=== PATIENT | male | born 1970 | race Two or more races ===

== ENCOUNTER 2021-01-23 22:05 | Emergency (ER) | payer OTHER ==
[~2021-01-23] VITALS: Ht 182.9 cm; Wt 127.0 kg
--- NOTE | 2021-01-23 22:08 | PHYS DOC ---
Past History Past Medical History: Arthritis Past Surgical History Rt. ankle and foot Smoking: Cigarettes General Adult HPI: HPI: ".. I ve had problems of these knees for years.. I had fluid taken off this Lt one once.. .. now this right has the same thing.. I think.. I got degenerative joint disease everywhere and now up and down my spine... A series from all the manual labor... I just moved out here from [facility] 3 months ago... But anyway this knee was given if it is day and almost fell when I got up because it hurts so bad..." Patient is a 50 year old male who presents with above hx and complaints increased right knee edema and pain. Patient has had somewhat chronic problems with both knees. The swelling in the right knee has become more prevalent in the past week . No specific history of injury. No history of fever or chills. No history of specific ill contacts. Has been exposed to Covid when he is in [place] from family members. Has had 2 family members of Covid. Patient has not gotten the Covid vaccination and does not plan to do so. No history immunosuppression. No history of IV drug use. Has had ankles and foot surgery on the right previously for fracture. Review of Systems: Review of Systems: Constitutional: Denies fever or chills Eyes: Denies change in visual acuity HENT: Denies nasal congestion or sore throat Respiratory: Denies cough or shortness of breath Cardiovascular: Denies chest pain or edema GI: Denies abdominal pain, nausea, vomiting, bloody stools or diarrhea : Denies dysuria Musculoskeletal: Complains of right knee pain Integument: Denies rash Neurologic: Denies headache, focal weakness or sensory changes Endocrine: Denies polyuria or polydipsia Lymphatic: Denies swollen glands Psychiatric: Denies depression or anxiety Family History: Family History: Hypertension arthritis diabetes Current Medications: Current Meds: See nursing for home meds Allergies: Allergies: No known drug allergies Physical Exam: PE: Constitutional: Moderate acute distress, non-toxic appearance. [] HENT: Normocephalic, atraumatic, bilateral external ears normal, oropharynx moist, no oral exudates, nose normal. [] Eyes: PERRLA, EOMI, conjunctiva normal, no discharge. [] Neck: Normal range of motion, no tenderness, supple, no stridor. [] Cardiovascular:Heart rate regular rhythm, no murmur [] Lungs & Thorax: Bilateral breath sounds equal apex few scattered wheezes on auscultation [] Abdomen: Bowel sounds normal, soft, no tenderness, no masses, no pulsatile masses. Obese. Noncircumcised male. No adenopathy in groin Skin: Warm, dry, no erythema, no rash. Tattoos Back: No tenderness, no CVA tenderness. Mild kyphosis Extremities: Bilateral knee tenderness, no cyanosis, no clubbing, ROM in both knees has crepitation, can do straight leg lifts. Does appear to have a popliteal cyst behind right knee. Has significant medial collateral ligament and meniscus tenderness on palpation with right knee. Distal neurovascular is equal to left. Old surgical scar right ankle and foot. No cording appreciated in the legs. Neurologic: Alert and oriented X 3, normal motor function, normal sensory function, no focal deficits noted. [] Psychologic: Affect anxious, judgement normal, mood normal. [] EKG: EKG: [] Radiology/Procedures: Radiology/Procedures: [][address] [place] [address] IMAGING REPORT Signed PATIENT: MARIA E PALMA ACCOUNT: [id number] : 1970 LOCATION: ER AGE: 50 SEX: M EXAM STATUS: REG ER ORD. PHYSICIAN: SPENSER TERAN MD REASON: pain,edema, CHRONIC PAIN, TWISTED TODAY PROCEDURE: KNEE RIGHT 4V EXAMINATION: XR KNEE 4 VIEWS WITH PATELLA_RT CLINICAL HISTORY: Pain, edema, CHRONIC PAIN, TWISTED TODAY TECHNIQUE: XR KNEE 4 VIEWS WITH PATELLA_RT Number of Images/Views: 5 COMPARISON: None FINDINGS: Joint spaces and alignment maintained. No acute fracture. Small suprapatellar enthesophyte. No significant joint effusion. IMPRESSION: No acute osseous abnormality. Electronically signed by: German Mcdonald DO (01/23/2021 11:24 PM) [facility] DICTATED AND SIGNED BY: GERMAN MCDONALD DO DATE: 01/23/21 0584 CC: SPENSER TERAN MD; PCP,NO ~MTH0 0 Heart Score: C/O Chest Pain: N/A Risk Factors: Risk Factors: DM, Current or recent (<one month) smoker, HTN, HLP, family history of CAD, obesity. Risk Scores: Score 0 - 3: 2.5% MACE over next 6 weeks - Discharge Home Score 4 - 6: 20.3% MACE over next 6 weeks - Admit for Clinical Observation Score 7 - 10: 72.7% MACE over next 6 weeks - Early Invasive Strategies Course & Med Decision Making: Course & Med Decision Making Pertinent Labs and Imaging studies reviewed. (See chart for details) Ice packs as needed. Elevate. Take Tylenol or Ibuprofen for pain. Wear Gaudencio wrap or knee brace. Recommend follow-up with [facility] Ortho [phone]. [] Impression: 1. Rt Knee DJD- marco antonio.Small supra patellar enthesopohyte 2. Small Rt. Jay Cyst? Saroj Disclaimer: Saroj Disclaimer: This electronic medical record was generated, in whole or in part, using a voice recognition dictation system. Departure Departure: Referrals: PCP,HAYDEN (PCP) Saroj Disclaimer This chart was dictated in whole or in part using Voice Recognition software in a busy, high-work load, and often noisy Emergency Department environment. It may contain unintended and wholly unrecognized errors or omissions. SPENSER TERAN MD Jan 23, 2021 22:08
--- NOTE | 2021-01-23 23:26 | RAD ---
EXAMINATION: XR KNEE 4 VIEWS WITH PATELLA_RT CLINICAL HISTORY: Pain, edema, CHRONIC PAIN, TWISTED TODAY TECHNIQUE: XR KNEE 4 VIEWS WITH PATELLA_RT Number of Images/Views: 5 COMPARISON: None FINDINGS: Joint spaces and alignment maintained. No acute fracture. Small suprapatellar enthesophyte. No signif icant joint effusion. IMPRESSION: No acute osseous abnormality. Electronically signed by: German Conner DO (01/23/2021 11:24 PM) KAREEN
[2021-01-23] MEDS ORDERED: KETOROLAC 60 MG/2 ML VIAL. IM ONE (23:30)
[2021-01-23] MEDS ORDERED: IBUPROFEN 600 MG TABLET. PO ONE (23:45)
[2021-01-24 00:13] VITALS: BP 130/72
== END 2021-01-24 00:13 | disposition home or self-care (01) ==
LOC: ER 22:05
DX: M17.11 Unilateral primary osteoarthritis, right knee (principal); F17.210 Nicotine dependence, cigarettes, uncomplicated
CPT/HCPCS: 73564; 99283

== ENCOUNTER 2021-07-20 08:08 | Emergency (ER) | payer SELFPAY ==
[~2021-07-20] VITALS: Ht 182.9 cm; Wt 127.0 kg
[2021-07-20 08:34] VITALS: BP 163/78
[2021-07-20] MEDS ORDERED: KETOROLAC 30 MG/ML VIAL. IVP ONE (09:00)
[2021-07-20] MEDS ORDERED: ORPHENADRINE CITRATE 60 MG/2 ML VIAL. IV ONE (09:00)
[2021-07-20 09:53] LABS: BASO # 0.1 x10^3/uL (0.0-0.2); BASO % 1 % (0-3); EOS # 2.2 x10^3/uL (0.0-0.7); EOS % 21 % (0-3); HEMATOCRIT 45.7 % (39.0-53.0); HEMOGLOBIN 15.5 g/dL (13.0-17.5); LYMPH # 1.8 x10^3/uL (1.0-4.8); LYMPH % 18 % (24-48); MEAN CORPUSCULAR HEMOGLOBIN 29 pg (25-35); MEAN CORPUSCULAR HGB CONC 34 g/dL (31-37); MEAN CORPUSCULAR VOLUME 86 fL (79-100); MONO # 0.8 x10^3/uL (0.0-1.1); MONO % 8 % (0-9); NEUT # 5.3 x10^3uL (1.8-7.7); NEUT % 52 % (31-73); PLATELET COUNT 244 x10^3/uL (140-400); RED BLOOD COUNT 5.31 x10^6/uL (4.30-5.70); RED CELL DISTRIBUTION WIDTH 13.5 % (11.5-14.5); WHITE BLOOD COUNT 10.2 x10^3/uL (4.0-11.0)
[2021-07-20 09:56] LABS: GFR 79.1; POTASSIUM 4.3 mmol/L (3.5-5.1)
[2021-07-20 10:22] LABS: ALBUMIN 3.9 g/dL (3.4-5.0); ALBUMIN/GLOBULIN RATIO 1.1 (1.0-1.7); MAGNESIUM 2.2 mg/dL (1.8-2.4); TOTAL BILIRUBIN 0.3 mg/dL (0.2-1.0); TOTAL PROTEIN 7.5 g/dL (6.4-8.2)
--- NOTE | 2021-07-20 10:34 | PHYS DOC ---
Past History Past Medical History: Arthritis Additional Past Medical Histor: SX TO R HEEL, INSOMNIA Past Surgical History: Other Additional Past Surgical Histo: bone stimulator Smoking: Cigarettes Alcohol Use: None General Adult EDM: Chief Complaint: BACK PAIN OR INJURY HPI: HPI: Patient is a [age] year old [sex] who presents with [] Review of Systems: Review of Systems: Constitutional: Denies fever or chills Eyes: Denies redness or eye pain HENT: Denies nasal congestion or sore throat Respiratory: Denies cough or shortness of breath Cardiovascular: Denies chest pain or palpitations GI: Denies abdominal pain, nausea, or vomiting : Denies dysuria or hematuria Musculoskeletal: Denies back pain or joint pain Integument: Denies rash or skin lesions Neurologic: Denies headache, focal weakness or sensory changes Complete systems were reviewed and found to be within normal limits, except as documented in this note. Current Medications: Current Meds: Current Medications Medications (Trade) Dose Ordered Sig/Dora Start Time Stop Time Status Last Admin Dose Admin Ketorolac Tromethamine (Toradol 30mg Vial) 15 mg 1X ONCE 07/20/21 09:00 07/20/21 09:01 DC 07/20/21 09:16 15 MG Orphenadrine Citrate (Norflex) 60 mg 1X ONCE 07/20/21 09:00 07/20/21 09:01 DC 07/20/21 09:16 60 MG Allergies: Allergies: Allergies Coded Allergies Type Severity Reaction Last Updated Verified No Known Drug Allergies 01/23/21 No Physical Exam: PE: Constitutional: Well developed, well nourished, no acute distress, non-toxic appearance HENT: Normocephalic, atraumatic Eyes: PERRL, EOMI, conjunctiva normal, no discharge Neck: Normal range of motion, no tenderness, supple Lungs & Thorax: No respiratory distress, equal chest rise and fall Abdomen: Soft, no tenderness Skin: Warm, dry, no erythema, no rash Back: No tenderness, no CVA tenderness Extremities: No tenderness, ROM intact, no edema Neurologic: Alert and oriented X 3, normal motor function, normal sensory function, no focal deficits noted Psychologic: Affect normal, judgment normal Current Patient Data: Labs: Laboratory Tests Test 07/20/21 09:15 White Blood Count 10.2 x10^3/uL (4.0-11.0) Red Blood Count 5.31 x10^6/uL (4.30-5.70) Hemoglobin 15.5 g/dL (13.0-17.5) Hematocrit 45.7 % (39.0-53.0) Mean Corpuscular Volume 86 fL (79-100) Mean Corpuscular Hemoglobin 29 pg (25-35) Mean Corpuscular Hemoglobin Concent 34 g/dL (31-37) Red Cell Distribution Width 13.5 % (11.5-14.5) Platelet Count 244 x10^3/uL (140-400) Neutrophils (%) (Auto) 52 % (31-73) Lymphocytes (%) (Auto) 18 % (24-48) L Monocytes (%) (Auto) 8 % (0-9) Eosinophils (%) (Auto) 21 % (0-3) H Basophils (%) (Auto) 1 % (0-3) Neutrophils # (Auto) 5.3 x10^3uL (1.8-7.7) Lymphocytes # (Auto) 1.8 x10^3/uL (1.0-4.8) Monocytes # (Auto) 0.8 x10^3/uL (0.0-1.1) Eosinophils # (Auto) 2.2 x10^3/uL (0.0-0.7) H Basophils # (Auto) 0.1 x10^3/uL (0.0-0.2) Sodium Level 137 mmol/L (136-145) Potassium Level 4.3 mmol/L (3.5-5.1) Chloride Level 102 mmol/L (98-107) Carbon Dioxide Level 28 mmol/L (21-32) Anion Gap 7 (6-14) Blood Urea Nitrogen 14 mg/dL (8-26) Creatinine 1.0 mg/dL (0.7-1.3) Estimated GFR (Cockcroft-Gault) 79.1 BUN/Creatinine Ratio 14 (6-20) Glucose Level 125 mg/dL (70-99) H Calcium Level 9.0 mg/dL (8.5-10.1) Magnesium Level 2.2 mg/dL (1.8-2.4) Total Bilirubin 0.3 mg/dL (0.2-1.0) Aspartate Amino Transferase (AST) 25 U/L (15-37) Alanine Aminotransferase (ALT) 72 U/L (16-63) H Alkaline Phosphatase 64 U/L (46-116) Creatine Kinase 198 U/L (39-308) Creatine Kinase MB (Mass) 1.6 ng/mL (0.0-3.6) Creatine Kinase MB Relative Index 0.8 % (0-4) Troponin I High Sensitivity 6 ng/L (4-75) BV-Ebn-G-Type Natriuretic Peptide 14 pg/mL (0-124) Total Protein 7.5 g/dL (6.4-8.2) Albumin 3.9 g/dL (3.4-5.0) Albumin/Globulin Ratio 1.1 (1.0-1.7) Lipase 90 U/L (73-393) Vital Signs: Vital Signs Date Time Temp Pulse Resp B/P (MAP) Pulse Ox O2 Delivery O2 Flow Rate FiO2 07/20/21 08:34 98.3 84 18 163/78 (106) 97 EKG: EKG: @0922 NSR at 71bpm, NO ST elevation, QRS 92ms, QT/QTc 370/407ms, t wave inversion I and aVL Radiology/Procedures: Radiology/Procedures: PROCEDURE: CHEST AP ONLY Exam Date: 07/20/2021 10:34 AM XR CHEST 1V Indication: Reason: SOA / Spl. Instructions: / History: . FINDINGS/ IMPRESSION: The cardiac silhouette is enlarged without congestion. There is no focal consolidation, pleural effusion or pneumothorax. The visualized osseous structures are intact. Electronically signed by: Justin Chin MD (07/20/2021 10:47 AM) [facility] Heart Score: C/O Chest Pain: No HEART Score for Chest Pain: HEART Score for Chest Pain Response (Comments) Value History Slighlty/Non-Suspicious 0 ECG Normal 0 Age >45 - < 65 1 Risk Factors No Risk Factors 0 Troponin < Normal Limit 0 Total 1 Risk Factors: Risk Factors: DM, Current or recent (<one month) smoker, HTN, HLP, family history of CAD, obesity. Risk Scores: Score 0 - 3: 2.5% MACE over next 6 weeks - Discharge Home Score 4 - 6: 20.3% MACE over next 6 weeks - Admit for Clinical Observation Score 7 - 10: 72.7% MACE over next 6 weeks - Early Invasive Strategies Course & Med Decision Making: Course & Med Decision Making Pertinent Labs and Imaging studies reviewed. (See chart for details) Patient stable for discharge with outpatient follow-up with PCP. Discussed f indings and plan with patient, who acknowledges understanding and agreement. Saroj Disclaimer: Saroj Disclaimer: This electronic medical record was generated, in whole or in part, using a voice recognition dictation system. Departure Departure: Impression: Primary Impression: Acute thoracic back pain Qualified Codes: M54.6 - Pain in thoracic spine Disposition: HOME / SELF CARE / HOMELESS Condition: STABLE Referrals: PCP,NO (PCP) Patient Instructions: Back Pain, Adult, [id number], Thoracic Strain, Jtdc-[id number]-[id number] Additional Instructions: Ice area of discomfort 20 minutes on then leave off for next 20 minutes. Repeat several times daily for the next few days. May use [id number] ibuprofen and or Tylenol for pain or discomfort. Scripts Orphenadrine Citrate (ORPHENADRINE CITRATE) 100 Mg Tablet.er 1 TAB PO BID PRN for MUSCLE PAIN, #14 TAB 0 Refills Prov: YANE MCCLELLAND DO 07/20/21 YANE MCCLELLAND DO Jul 20, 2021 10:34
--- NOTE | 2021-07-20 10:49 | RAD ---
Exam Date: 07/20/2021 10:34 AM XR CHEST 1V Indication: Reason: SOA / Spl. Instructions: / History: . FINDINGS/ IMPRESSION: The cardiac silhouette is enlarged without congestion. There is no focal consolidation, pleural effusion or pneumothorax. The visualized osseous structures are intact. Electronically signed by: Justin Chin MD (07/20/2021 10:47 AM) [facility]
[2021-07-20] MEDS ORDERED: ORPH-16 PO (11:09)
--- NOTE | 2021-07-20 21:26 | EKG ---
[address] [address] Test Date: 2021-07-20 Test Time: 09:22:30 Pat Name: MARIA E PALMA Department: Room: Gender: M Public Affairs Officer: : 1970 Requested By: YANE MCCLELLAND Order Number: [id number] Reading MD: Anjum Morfin Measurements Intervals [place] Rate: 71 P: 146 [place]: 186 QRS: 160 QRSD: 92 T: 146 QT: 370 QTc: 407 Interpretive Statements SINUS RHYTHM ABNORMAL RIGHT AXIS DEVIATION QRS(T) CONTOUR ABNORMALITY CONSISTENT WITH POSSIBLE HIGH LATERAL INFARCT AGE UNDETERMINED ABNORMAL ECG Electronically Signed On 07-21-2021 15:40:30 DIRECTOR OF FUNDRAISING by Anjum Morfin
== END 2021-07-20 11:20 | disposition home or self-care (01) ==
LOC: ER 08:08
DX: M54.6 Pain in thoracic spine (principal); F17.210 Nicotine dependence, cigarettes, uncomplicated
CPT/HCPCS: 36415; 71045; 80053; 82553; 83690; 83735; 83880; 84484; 85025; 93005; 96374; 96375; 99285; J1885; J2360

== ENCOUNTER 2021-07-23 10:32 | Emergency (ER) | payer SELFPAY ==
[~2021-07-23] VITALS: Ht 182.9 cm; Wt 126.6 kg
[2021-07-23 10:32] VITALS: BP 155/93
[~2021-07-23 10:32] MED LIST: ORPH-16 PO
--- NOTE | 2021-07-23 11:06 | PHYS DOC ---
Past History Past Medical History: Arthritis Additional Past Medical Histor: SX TO R HEEL, INSOMNIA Past Surgical History: Other Additional Past Surgical Histo: bone stimulator Smoking: Cigarettes Alcohol Use: None General Adult EDM: Chief Complaint: ABDOMINAL PAIN HPI: HPI: 51-year-old male presents with right-sided abdominal pain. The patient was at home yesterday doing nothing strenuous when he started to feel a pulling/tearing sensation in the right side of his abdomen. Afterward he continued to have a cramping pain sensation and that part of his abdomen started to be more prominent. This morning, the patient can still see more prominently bulging out area of his right abdomen and the pain has not improved. The patient has no history of abdominal surgery. He denies nausea, vomiting, fever, chills. Review of Systems: Review of Systems: Constitutional: Denies fever or chills Eyes: Denies change in visual acuity HENT: Denies nasal congestion or sore throat Respiratory: Denies cough or shortness of breath Cardiovascular: Denies chest pain or edema GI: Right-sided abdominal pain. Denies nausea, vomiting, bloody stools or diarr hea : Denies dysuria Musculoskeletal: Denies back pain or joint pain Integument: Denies rash Neurologic: Denies headache, focal weakness or sensory changes Endocrine: Denies polyuria or polydipsia Lymphatic: Denies swollen glands Psychiatric: Denies depression or anxiety Allergies: Allergies: Allergies Coded Allergies Type Severity Reaction Last Updated Verified No Known Drug Allergies 01/23/21 No Physical Exam: PE: Constitutional: Well developed, well nourished, morbidly obese, no acute distress, non-toxic appearance. [] HENT: Normocephalic, atraumatic, bilateral external ears normal, oropharynx moist, no oral exudates, nose normal. [] Eyes: PERRLA, EOMI, conjunctiva normal, no discharge. [] Neck: Normal range of motion, no tenderness, supple, no stridor. [] Cardiovascular: Heart rate regular rhythm, no murmur [] Lungs & Thorax: Bilateral breath sounds clear to auscultation [] Abdomen: Bowel sounds normal, soft, right mid tenderness, 5 cm x 10 cm area of prominence that is soft, no pulsatile masses. [] Skin: Warm, dry, no erythema, no rash. [] Back: No tenderness, no CVA tenderness. [] Extremities: No tenderness, no cyanosis, no clubbing, ROM intact, no edema. [] Neurologic: Alert and oriented X 3, normal motor function, normal sensory function, no focal deficits noted. [] Psychologic: Affect normal, judgement normal, mood normal. [] EKG: EKG: [] Radiology/Procedures: Radiology/Procedures: [] Impressions: EXAM: Abdomen and pelvis CT with intravenous contrast. HISTORY: Pain. TECHNIQUE: Computed tomographic images of the abdomen and pelvis were obtained following the administration of intravenous contrast. Multiplanar reformatting was performed. *One or more of the following individualized dose reduction techniques were utilized for this examination: 1. Automated exposure control. 2. Adjustment of the mA and/or kV according to patient size. 3. Use of iterative reconstruction technique. COMPARISON: None. FINDINGS: Evaluation of the lower thorax demonstrates posterior dependent atelectasis. There is lingular atelectasis or scarring. There is no infiltrate or pleural effusion. There is hepatic steatosis. There is mild hepatomegaly. There is a 2.0 cm hypodense lesion within the inferior right hepatic lobe. There is a smaller lesion measuring approximately 8 mm within the right hepatic lobe. There is slight fatty sparing within the gallbladder fossa. The gallbladder, pancreas, spleen and right adrenal gland are unremarkable. There is a 1.9 cm nodule or nodular thickening of the left adrenal gland. The kidneys are unremarkable. There is no appendicitis. There is no bowel obstruction. There is no abnormal bowel wall thickening. There is distal colonic diverticulosis. There is no diverticulitis. The bladder is unremarkable. The aorta is normal in caliber. There is no lymphadenopathy. There is no acute or suspicious osseous finding. There is grade 1 anterolisthesis with bilateral pars interarticularis defects at L5-S1. There is associated severe foraminal stenosis at this level. IMPRESSION: 1. No evidence of appendicitis. 2. Hepatic steatosis. 3. Small hypodense lesions within the right hepatic lobe, the larger of which measures 2.0 cm. In the absence of known malignancy, these are likely cysts. 4. Grade 1 anterolisthesis with pars defects and associated foraminal stenosis at L5-S1. 5. 1.9 cm nodule or nodular thickening of the left adrenal gland. Adrenal protocol CT or MRI can be performed to confirm benignity if there are no prior studies to confirm stability. Electronically signed by: Coral Saunders MD (07/23/2021 12:00 PM) [facility] DICTATED AND SIGNED BY: CORAL SAUNDERS MD DATE: 07/23/21 3456 CC: ALEK BERGER DO; PCP,NO ~MTH0 0 Heart Score: C/O Chest Pain: N/A Risk Factors: Risk Factors: DM, Current or recent (<one month) smoker, HTN, HLP, family history of CAD, obesity. Risk Scores: Score 0 - 3: 2.5% MACE over next 6 weeks - Discharge Home Score 4 - 6: 20.3% MACE over next 6 weeks - Admit for Clinical Observation Score 7 - 10: 72.7% MACE over next 6 weeks - Early Invasive Strategies Course & Med Decision Making: Course & Med Decision Making Pertinent Labs and Imaging studies reviewed. (See chart for details) The patient's labs are unremarkable. His CT of the abdomen and pelvis is negative for acute findings. There is no hernia or obvious cause for his prominent area of the right abdomen. There are some incidental findings. See official read for more details. I have made the patient aware of these and told him to follow-up with his primary doctor. He states verbal understanding. He is stable for discharge at this time. [] Yelenaon Disclaimer: Saroj Disclaimer: This electronic medical record was generated, in whole or in part, using a voice recognition dictation system. Departure Departure: Impression: Primary Impression: Abdominal wall bulge Disposition: HOME / SELF CARE / HOMELESS Condition: STABLE Referrals: PCP,NO (PCP) Patient Instructions: Abdominal Pain, [id number] ALEK BERGER DO Jul 23, 2021 11:06
[2021-07-23] MEDS ORDERED: IOHEXOL 300 MG/ML 75 ML VIAL. IV ONE (11:15)
[2021-07-23 11:57] LABS: BASO # 0.1 x10^3/uL (0.0-0.2); BASO % 1 % (0-3); EOS # 1.7 x10^3/uL (0.0-0.7); EOS % 16 % (0-3); HEMOGLOBIN 15.4 g/dL (13.0-17.5); LYMPH # 1.7 x10^3/uL (1.0-4.8); LYMPH % 17 % (24-48); MEAN CORPUSCULAR HEMOGLOBIN 29 pg (25-35); MEAN CORPUSCULAR HGB CONC 34 g/dL (31-37); MEAN CORPUSCULAR VOLUME 85 fL (79-100); MONO # 0.9 x10^3/uL (0.0-1.1); MONO % 9 % (0-9); NEUT % 58 % (31-73); PLATELET COUNT 265 x10^3/uL (140-400); RED BLOOD COUNT 5.26 x10^6/uL (4.30-5.70); RED CELL DISTRIBUTION WIDTH 13.7 % (11.5-14.5); WHITE BLOOD COUNT 10.4 x10^3/uL (4.0-11.0)
[2021-07-23 11:59] LABS: CREATININE 1.1 mg/dL (0.7-1.3); GFR 70.9; POTASSIUM 3.7 mmol/L (3.5-5.1)
--- NOTE | 2021-07-23 12:03 | RAD ---
EXAM: Abdomen and pelvis CT with intravenous contrast. HISTORY: Pain. TECHNIQUE: Computed tomographic images of the abdomen and pelvis were obtained following the administ ration of intravenous contrast. Multiplanar reformatting was performed. *One or more of the following individualized dose reduction techniques were utilized for this examina tion: 1. Automated exposure control. 2. Adjustment of the mA and/or kV according to patient size. 3. Use of iterative reconstruction technique. COMPARISON: None. FINDINGS: Evaluation of the lower thorax demonstrates posterior dependent atelectasis. There is lingu lar atelectasis or scarring. There is no infiltrate or pleural effusion. There is hepatic steatosis. There is mild hepatomegaly. There is a 2.0 cm hypodense lesion within the inferior right hepatic lobe . There is a smaller lesion measuring approximately 8 mm within the right hepatic lobe. There is slig ht fatty sparing within the gallbladder fossa. The gallbladder, pancreas, spleen and right adrenal gl and are unremarkable. There is a 1.9 cm nodule or nodular thickening of the left adrenal gland. The k idneys are unremarkable. There is no appendicitis. There is no bowel obstruction. There is no abnormal bowel wall thickening. There is distal colonic diverticulosis. There is no diverticulitis. The bladder is unremarkable. The aorta is normal in caliber. There is no lymphadenopathy. There is no acute or suspicious osseous find ing. There is grade 1 anterolisthesis with bilateral pars interarticularis defects at L5-S1. There is associated severe foraminal stenosis at this level. IMPRESSION: 1. No evidence of appendicitis. 2. Hepatic steatosis. 3. Small hypodense lesions within the right hepatic lobe, the larger of which measures 2.0 cm. In the absence of known malignancy, these are likely cysts. 4. Grade 1 anterolisthesis with pars defects and associated foraminal stenosis at L5-S1. 5. 1.9 cm nodule or nodular thickening of the left adrenal gland. Adrenal protocol CT or MRI can be p erformed to confirm benignity if there are no prior studies to confirm stability. Electronically signed by: Coral Saunders MD (07/23/2021 12:00 PM) [facility]
[2021-07-23 12:05] LABS: TOTAL BILIRUBIN 0.5 mg/dL (0.2-1.0); TOTAL PROTEIN 8.1 g/dL (6.4-8.2)
== END 2021-07-23 12:58 | disposition home or self-care (01) ==
LOC: ER 10:32
DX: R19.00 Intra-abdominal and pelvic swelling, mass and lump, unspecified site (principal)
CPT/HCPCS: 36415; 74177; 80053; 85025; 99285; Q9967